=== PATIENT | male | born 1945 | race Caucasian/White ===

== ENCOUNTER → 2019-08-16 08:58 | Outpatient (BNVA) | payer MEDICARE, MEDICAID, SELFPAY | PROVIDERS: Family Provider Nurse Practitioner Family; PCP Nurse Practitioner Family; Visit Provider Nurse Practitioner Family | DX: E11.9 Type 2 diabetes mellitus without complications (principal) | CPT/HCPCS: 80053; 83036 ==

== ENCOUNTER → 2019-11-25 11:31 | Outpatient (BNVA) | payer MEDICARE, MEDICAID, SELFPAY | PROVIDERS: Family Provider Nurse Practitioner Family; PCP Nurse Practitioner Family; Visit Provider Nurse Practitioner Family | DX: G62.9 Polyneuropathy, unspecified (principal); E11.42 Type 2 diabetes mellitus with diabetic polyneuropathy; E78.5 Hyperlipidemia, unspecified; I10 Essential (primary) hypertension | CPT/HCPCS: 80053; 80061; 82044; 83036 ==

== ENCOUNTER → 2020-04-02 09:35 | Outpatient (BNVA) | payer MEDICARE, MEDICAID, SELFPAY | PROVIDERS: Family Provider Nurse Practitioner Family; PCP Nurse Practitioner Family; Visit Provider Nurse Practitioner Family | DX: E78.1 Pure hyperglyceridemia (principal); E11.9 Type 2 diabetes mellitus without complications; I10 Essential (primary) hypertension | CPT/HCPCS: 83036; 84478 ==

== ENCOUNTER 2020-12-10 09:17 | Outpatient (CLI) | payer MEDICARE, SELFPAY ==
[2020-12-10 09:54] LABS: Estmated Average Glucose 126
[2020-12-10 10:14] LABS: Alanine Aminotransferase 13 U/L (0-41); Albumin Level 4.2 g/dL (3.5-5.2); Alkaline Phosphatase 32 IU/L (40-130); Anion Gap 14.5 (5-19); Aspartate Amino Transferase 19 U/L (0-40); Blood Urea Nitrogen 28 mg/dL (8-23); Carbon Dioxide 30 mmol/L (22-29); Chloride 97 mmol/L (98-107); Globulin 3.2 g/dL (1.3-4.6); Glucose 107 mg/dL (65-115); Osmolality Calculated 292 mOsm/kg (285-295); Potassium 3.5 mmol/L (3.5-5.1); Sodium 138 mmol/L (136-145); Total Bilirubin 0.8 mg/dL (0.15-1.2); Total Protein 7.4 g/dL (6.6-8.7)
== END 2020-12-10 09:18 | disposition home or self-care (01) ==
LOC: LAB 09:27
PROVIDERS: PCP Nurse Practitioner Family; Visit Provider Nurse Practitioner Family
DX: I10 Essential (primary) hypertension (principal); E11.9 Type 2 diabetes mellitus without complications
CPT/HCPCS: 36415; 80053; 83036

== ENCOUNTER 2020-12-14 10:44 | Outpatient (CLI) | payer MEDICARE, SELFPAY ==
--- NOTE | 2020-12-14 11:00 | CT_ITS ---
WS: [id number] CT ABDOMEN PELVIS TECHNIQUE: Noncontrast CT of the abdomen and pelvis with coronal and sagittal reformatted images. CLINICAL INFORMATION: R16.0 - Hepatomegaly, not elsewhere classified COMPARISON: None. DLP: 739.[address] scans at [facility] use at least one of these dose optimization techniques: automat ed exposure control; mA and/or kV adjustment per patient size (includes targeted exams where dose is matched to clinical indication); or iterative reconstruction. FINDINGS: Small fat-containing periumbilical hernia. No herniated bowel. Tiny fat-containing umbilical hernia. Noncontrast liver is normal. Normal noncontrast spleen. Noncontrast pancreas is unremarkable. Small e sophageal hiatal hernia. Left adrenal gland is normal. Small right adrenal adenomas measuring 9 mm an d 8 mm. No abdominal lymphadenopathy. Congenital Horseshoe kidney. Left renal cyst measuring 2.5 CM. No hydronephrosis in either kidney. No evidence of small or large bowel obstruction. Disc space narrowing worse L5-S1. CT/CT abdomen pelvis wo con [id number] IMPRESSION: 1. Small esophageal hiatal hernia. 2. Tiny fat-containing umbilical hernia. Adjacent small fat-containing left pe riumbilical hernia. No herniated bowel. 3. No evidence of small or large bowel obstruction. 4. Congenital horseshoe kidney. No hydronephrosis. 5. Left renal cyst measuring 2.6 CM. 6. Small right adrenal adenomas.
== END 2020-12-14 10:45 | disposition home or self-care (01) ==
PROVIDERS: PCP Nurse Practitioner Family; Visit Provider Nurse Practitioner Family
DX: R16.0 Hepatomegaly, not elsewhere classified (principal); K44.9 Diaphragmatic hernia without obstruction or gangrene; K42.9 Umbilical hernia without obstruction or gangrene; N28.1 Cyst of kidney, acquired; D35.01 Benign neoplasm of right adrenal gland
CPT/HCPCS: 74176

== ENCOUNTER → 2021-02-12 08:41 | Outpatient (BNVA) | payer MEDICARE, SELFPAY | PROVIDERS: PCP Nurse Practitioner Family; Visit Provider Surgery | DX: Z20.828 Contact with and (suspected) exposure to other viral communicable diseases (principal) | CPT/HCPCS: 87635 ==

== ENCOUNTER 2021-02-18 09:22 | Day surgery (SDC) | payer MEDICARE, MEDICAID, SELFPAY ==
[2021-02-16 09:24] VITALS: BMI 29.9
--- NOTE | 2021-02-18 09:37 | ANES.PREANE2 ---
Pre-Anesthetic Assessment Pre-Anesthetic Assessment: Height/Weight: Height 1.73 m Weight 89.358 kg Proposed Procedure: Operation Date: 02/18/21 11:00 Proposed Procedures p EGD [id number] z12.11 k21.9(Not Applicable) - Edgar Hancock MD s Colonoscopy(Not Applicable) - Edgar Hancock MD Was Beta Stephen taken within 24 hours: Yes Was Clonidine taken within 24 hours: N/A Social: Social History: No alcohol and No tobacco Exam: Pre-Anes Outpt Exam: alert, oriented x 3, clear to auscultation bilaterally and regular rate & rhythm Airway: Submandibular: WNL Cervical ROM: WNL MP: 2 Dentition: Full CV/HEM: CV/HEM: CAD (CABG) and HTN GI: GI: GERD Metabolic: Metabolic: DM and Hyperlipidemia Anesthetic Plan: ASA status: 3 Anesthesia: MAC Risk of > 500 ml blood loss (7ml/kg in children): No PFSH Anesthesia PFSH: Medical History BPH (benign prostatic hyperplasia) Diabetes mellitus History of kidney stones Horseshoe kidney HTN (hypertension) Hypertriglyceridemia Incisional hernia Surgical History H/O thoracic aortic aneurysm repair History of kidney surgery Hx of appendectomy Hx of cholecystectomy Family History Denies family history of Anesthesia complication Bleeding disorder Social History Smoking and tobacco status: former smoker Alcohol intake: never Household members: spouse Marital status: Data Anesthesia Cardiac Studies: No Data to Display
--- NOTE | 2021-02-18 09:43 | W.PM.OPSFHP ---
Same Day Surgery H&P Indication for Procedure/HPI DATE OF PROCEDURE: February 18, 2021 CHIEF COMPLAINT/INDICATIONFOR SURGICAL PROCEDURE: gerd/screening PREOP DIAGNOSIS: screening PLANNED PROCEDRUE: Operation Date: 02/18/21 11:00 Proposed Procedures p EGD [id number] z12.11 k21.9(Not Applicable) - Edgar Hancock MD s Colonoscopy(Not Applicable) - Edgar Hancock MD Medications/Allergies* Home Medications Medication Instructions Recorded Confirmed Type aspirin 81 mg tablet,delayed 81 mg PO DAILY 08/16/19 02/16/21 History release gabapentin 300 mg PO BID 02/16/21 02/16/21 History hydrochlorothiazide 25 mg PO DAILY 02/16/21 02/16/21 History lovastatin 40 mg PO DAILY 02/16/21 02/16/21 History topiramate 50 mg PO DAILY 02/16/21 02/16/21 History Allergies/Adverse Reactions Allergy/AdvReac Type Severity Reaction Status Date / Time No Known Allergies Allergy Verified 12/16/20 15:40 Pertinent History/Comorbid Conditions* Medical History (Updated 12/29/20 @ 09:09 by Edgar Hancock MD) BPH (benign prostatic hyperplasia) Diabetes mellitus History of kidney stones Horseshoe kidney HTN (hypertension) Hypertriglyceridemia Incisional hernia Surgical History (Updated 12/29/20 @ 08:56 by Edgar Hancock MD) H/O thoracic aortic aneurysm repair History of kidney surgery Hx of appendectomy Hx of cholecystectomy Family History (Updated 12/29/20 @ 08:44 by DARLENE Membreno) Denies family history of Anesthesia complication Bleeding disorder Social History Smoking and tobacco status: former smoker Alcohol intake: never Household members: spouse Marital status: Pertinent Exam Findings alert, oriented x 3 and regular rate & rhythm Recommendations Surgery/Procedure today Coding Level of Care Code Acute 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
[2021-02-18 10:05] VITALS: BP 169/74; PULSE 58; RESP 18; TEMP 36.1; O2SAT 98
[2021-02-18] MEDS: sodium chloride 0.9% 1,000 ML 30 ML IV (10:10)
[2021-02-18 10:15] LABS: Glucose Point of Care 141 mg/dL (70-110)
[2021-02-18 11:56] VITALS: BP 97/50; PULSE 62; RESP 14; TEMP 36.1; O2SAT 94
[2021-02-18 12:15] VITALS: BP 110/86; PULSE 68; RESP 18; O2SAT 96
--- NOTE | 2021-02-18 12:40 | ANE.PACU2 ---
Inpatient post-anesthesia follow up: Airway intact: Yes Vital signs: Temperature 97 F Pulse Rate 68 Respiratory Rate 18 Blood Pressure 110/86 Pulse Oximetry 96 Oxygen Delivery Me thod Room Air Oxygen Flow Rate 2 Fraction of Inspir ed Oxygen Hydration adequate: Yes Mental status: Baseline
--- NOTE | 2021-02-18 14:40 | ANE.PACU2 ---
Inpatient post-anesthesia follow up: Airway intact: Yes Vital signs: Temperature 97 F Pulse Rate 68 Respiratory Rate 18 Blood Pressure 110/86 Pulse Oximetry 96 Oxygen Delivery Me thod Room Air Oxygen Flow Rate 2 Fraction of Inspir ed Oxygen Hydration adequate: Yes Nausea and vomiting: No Pain level: 1 Mental status: Baseline
== END 2021-02-18 12:45 | disposition home or self-care (01) ==
PROVIDERS: PCP Nurse Practitioner Family; Visit Provider Surgery
PROC: 0DJ08ZZ Inspection of Upper Intestinal Tract, Via Natural or Artificial Opening Endoscopic (ICD-10-PCS; CPT 43235; principal; 2021-02-18 11:00)
PROC: 0DJD8ZZ Inspection of Lower Intestinal Tract, Via Natural or Artificial Opening Endoscopic (ICD-10-PCS; CPT 45378; 2021-02-18 11:00)
DX: Z12.11 Encounter for screening for malignant neoplasm of colon (principal); K21.9 Gastro-esophageal reflux disease without esophagitis; K57.30 Diverticulosis of large intestine without perforation or abscess without bleeding; K64.8 Other hemorrhoids; K29.70 Gastritis, unspecified, without bleeding; Z79.82 Long term (current) use of aspirin; N40.0 Benign prostatic hyperplasia without lower urinary tract symptoms; E11.9 Type 2 diabetes mellitus without complications; I10 Essential (primary) hypertension; Z87.891 Personal history of nicotine dependence; I25.10 Atherosclerotic heart disease of native coronary artery without angina pectoris; Z95.1 Presence of aortocoronary bypass graft; E78.5 Hyperlipidemia, unspecified
CPT/HCPCS: 36416; 43239; 82962; 88305; 96360; 96361; G0121; J2704; J3490; J7030

== ENCOUNTER → 2021-05-03 10:12 | Outpatient (BNVA) | payer MEDICARE, MEDICAID, SELFPAY | PROVIDERS: PCP Nurse Practitioner Family; Visit Provider Nurse Practitioner Family | DX: E11.9 Type 2 diabetes mellitus without complications (principal); I10 Essential (primary) hypertension; E78.5 Hyperlipidemia, unspecified; I25.10 Atherosclerotic heart disease of native coronary artery without angina pectoris; E78.1 Pure hyperglyceridemia | CPT/HCPCS: 80053; 80061; 82043; 83036 ==

== ENCOUNTER 2021-07-22 06:57 | Outpatient (CLI) | payer MEDICARE, MEDICAID, SELFPAY ==
--- NOTE | 2021-07-22 07:15 | USCV_ITS ---
Lester Etienne Age: 76 Gender: M : 1945 Exam Date: 07/22/2021 07:15 Ordering Phys: Jesus Oro M.D ([email or web address]) Technologist: Jena Grider Exam Location: [facility] [place] Indication: Porcine AO valve BP: 130 / 75 HR: 64 Rhythm: Sinus Technical Quality: Adequate MEASUREMENTS (Male / Female) Normal Values 2D ECHO LV Diastolic Diameter PLAX 3.7 cm 4.2 - 5.9 / 3.9 - 5.3 cm LV Systolic Diameter PLAX 2.0 cm LV Chamber Size 3.6 cm IVS Diastolic Thickness 1.0 cm 0.6 - 1.0 / 0.6 - 0.9 cm IVS Systolic Thickness 0.9 cm LVPW Diastolic Thickness 1.1 cm 0.6 - 1.0 / 0.6 - 0.9 cm LVPW Systolic Thickness 1.1 cm RV Chamber Size 3.3 cm LVOT Diameter 2.0 cm LV Ejection Fraction 2D Teich 77.7 % LV Ejection Fraction MOD 2C 36.8 % LV Ejection Fraction 2C AL 36.1 % LA Diameter 4.2 cm LA Width 3.2 cm LA Height 4.8 cm RA Width 3.4 cm RA Height 4.0 cm Aorta at Sinotubular Diameter 2.8 cm M-MODE Aortic Annulus Diameter 2.3 cm LA Ao Ratio MM 1.8 MV E Point Septal Separation 0.4 cm DOPPLER AV Peak Velocity 194.0 cm/s LVOT Peak Velocity 78.0 cm/s AV Area Cont Eq vti 1.4 cm squared AV Area Cont Eq pk 1.3 cm squared MV Area PHT 3.2 cm squared Mitral E to A Ratio 1.0 MV E' Velocity 40.0 cm/s Mitral E to MV E' Ratio 8.4 Mitral E to LV E' Lateral Ratio 7.6 Mitral E to LV E' Septal Ratio 9.4 TR Peak Velocity 243.8 cm/s TR Peak Gradient 23.8 mmHg TR Mean Velocity 175.0 cm/s TR Mean Gradient 13.7 mmHg TR Velocity Time Integral 82.3 cm Right Atrial Pressure 3.0 mmHg Pulmonary Artery Systolic Pressu 26.8 mmHg PV Peak Velocity 67.3 cm/s RV Acceleration Time 0.2 s RV Ejection Time 0.3 s RV AcT/ET 0.5 FINDINGS Left Ventricle Normal left ventricular size. LV systolic function is borderline normal with EF of 50-55%. No regional wall motion abnormalities. Right Ventricle The right ventricle is normal in size and function. Right Atrium The right atrium is normal in size. Left Atrium The left atrium is normal in size. Mitral Valve Mitral valve is thickened without significant stenosis or prolapse. There is no mitral regurgitation. Aortic Valve Bioprosthetic aortic valve is not well visualized. Mild aortic stenosis is seen with aortic valve area of 1.39cm2 and mean gradient across the aortic valve of 10mmHg. DVI is normal and is 0.43 Tricuspid Valve Structurally normal tricuspid valve without significant stenosis. Mild tricuspid regurgitation. Pulmonary artery systolic pressure is normal. Pulmonic Valve Structurally normal pulmonic valve without significant stenosis. There is no pulmonic regurgitation. Pericardium Normal pericardium without effusion. Aorta Normal ascending aorta dimension. CONCLUSIONS LV systolic function is borderline normal with EF of 50-55% Mitral valve is thickened Bioprosthetic aortic valve is not well visualized. It is functioning normally with DVI of 0.43. 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 Jesus Oro MD (Electronically Signed) Final Date: 22 July 2021 10:09 S
== END 2021-07-22 06:58 | disposition home or self-care (01) ==
PROVIDERS: PCP Nurse Practitioner Family; Visit Provider Internal Medicine
DX: Z95.3 Presence of xenogenic heart valve (principal); I05.9 Rheumatic mitral valve disease, unspecified
CPT/HCPCS: 93306

== ENCOUNTER → 2021-08-03 11:16 | Outpatient (BNVA) | payer MEDICARE, MEDICAID, SELFPAY | PROVIDERS: PCP Nurse Practitioner Family; Visit Provider Nurse Practitioner Family | DX: I10 Essential (primary) hypertension (principal); E78.5 Hyperlipidemia, unspecified; E11.9 Type 2 diabetes mellitus without complications; E78.1 Pure hyperglyceridemia | CPT/HCPCS: 80053; 80061; 82043; 83036 ==

== ENCOUNTER → 2021-11-24 14:23 | Outpatient (BNVA) | payer MEDICARE, MEDICAID, SELFPAY | PROVIDERS: PCP Nurse Practitioner Family; Visit Provider Internal Medicine | DX: I25.10 Atherosclerotic heart disease of native coronary artery without angina pectoris (principal); I10 Essential (primary) hypertension; R06.00 Dyspnea, unspecified; Z95.2 Presence of prosthetic heart valve; Z87.891 Personal history of nicotine dependence | CPT/HCPCS: 99213; 99214 ==

== ENCOUNTER 2022-02-04 08:28 | Outpatient (CLI) | payer MEDICARE, MEDICAID, SELFPAY ==
[2022-02-04 09:36] LABS: Estmated Average Glucose 146; Hemoglobin A1C 6.7 % (4.0-6.0)
[2022-02-04 09:42] LABS: Alanine Aminotransferase 21 U/L (0-41); Alkaline Phosphatase 35 IU/L (40-130); Blood Urea Nitrogen 23 mg/dL (8-23); Carbon Dioxide 30 mmol/L (22-29); Chloride 101 mmol/L (98-107); Chol HDL Ratio 3.87 mg/dL (1.0-5.00); Cholesterol 120 mg/dL (0-200); Globulin 3.1 g/dL (1.3-4.6); Glucose 125 mg/dL (65-115); HDL Cholesterol 31 mg/dL (60-100); LDL Cholesterol Calculated 31 mg/dL (50-129); Osmolality Calculated 297 mOsm/kg (285-295); Sodium 141 mmol/L (136-145); Total Protein 7.1 g/dL (6.6-8.7); Triglycerides 291 mg/dL (0-150)
[2022-02-04 09:47] LABS: Anion Gap 13.2 (5-19); Aspartate Amino Transferase 26 U/L (0-40); Potassium 3.2 mmol/L (3.5-5.1)
== END 2022-02-04 08:29 | disposition home or self-care (01) ==
LOC: LAB 08:45
PROVIDERS: PCP Nurse Practitioner Family; Visit Provider Nurse Practitioner Family
DX: E11.9 Type 2 diabetes mellitus without complications (principal); I10 Essential (primary) hypertension
CPT/HCPCS: 36415; 80053; 80061; 83036

== ENCOUNTER → 2022-03-30 14:20 | Outpatient (BNVA) | payer MEDICARE, MEDICAID, SELFPAY | PROVIDERS: PCP Nurse Practitioner Family; Visit Provider Nurse Practitioner Family | DX: R63.4 Abnormal weight loss (principal); R10.9 Unspecified abdominal pain; E11.9 Type 2 diabetes mellitus without complications | CPT/HCPCS: 80053; 82962; 85025 ==

== ENCOUNTER → 2022-06-06 11:12 | Outpatient (BNVA) | payer MEDICARE, MEDICAID, SELFPAY | PROVIDERS: PCP Nurse Practitioner Family; Visit Provider Nurse Practitioner Family | DX: M79.606 Pain in leg, unspecified (principal); E11.9 Type 2 diabetes mellitus without complications | CPT/HCPCS: 82550; 83036 ==

== ENCOUNTER → 2022-10-12 10:17 | Outpatient (BNVA) | payer MEDICARE, MEDICAID, SELFPAY | PROVIDERS: PCP Nurse Practitioner Family; Visit Provider Nurse Practitioner Family | DX: E11.9 Type 2 diabetes mellitus without complications (principal); I10 Essential (primary) hypertension; E78.1 Pure hyperglyceridemia | CPT/HCPCS: 80053; 80061; 83036 ==

== ENCOUNTER 2022-11-01 16:02 | Emergency (ER) | payer MEDICARE, MEDICAID, SELFPAY ==
[2022-11-01 16:08] VITALS: BP 87/46; PULSE 78; RESP 16; TEMP 36.8; O2SAT 95
--- NOTE | 2022-11-01 16:16 | XRR_ITS ---
PROCEDURE INFORMATION: Exam: XR Chest Exam date and time: 11/01/2022 4:31 PM Age: 77 years old Clinical indication: Cough and dyspnea; Additional info: Dyspnea/cough TECHNIQUE: Imaging protocol: Radiologic exam of the chest. Views: 1 view. COMPARISON: CT abdomen pelvis con [id number] 12/14/2020 11:34 AM FINDINGS: Lungs: Left lower lobe atelectasis versus minimal infiltrate. Pleural spaces: Unremarkable. No pleural effusion. No pneumothorax. Heart/Mediastinum: Unremarkable. No cardiomegaly. Bones/joints: Sternotomy wires. XR/XR chest 1V portable [id number] IMPRESSION: 1. Left lower lobe atelectasis versus minimal infiltrate. 2. Sternotomy wires.
--- NOTE | 2022-11-01 16:30 | ED_ITS ---
Documented by User: Onofre Parra DO 11/02/22 07:35 HPI - Dizziness General: Chief Complaint: Dizziness Stated Complaint: low bp/sob Time Seen by Provider: 11/01/22 16:15 Source: patient Mode of arrival: ambulatory History of Present Illness: HPI Narrative: 77-year-old male presents to the emergency room complaining of dizziness when he stands. He has had elevated blood sugars well. He has a known history of heart disease he has previously had stents knee and bioprosthetic aortic valve replacement he is not on any anticoagulants. He reports lightheadedness and d izziness when standing for the last several weeks. He has noticed when he exerts himself at all he gets somewhat short of breath. MD elicited complaint: dizziness and lightheadedness Onset (ago): week(s) Severity: mild Description: lightheadedness and off-balance Context: change in body position Exacerbating factors: change in body position Relieving factors: remaining still Associated symptoms: Denies change in hearing, chest pain, chills, cough, diaphoresis, ear discharge, ear pressure, fevers/chills, headache(s), malaise, nausea, nasal congestion, palpitations, rash, short of breath, syncope, tinnitus, vomiting or weakness Associated neuro symptoms: Deny confusion, difficulty speaking, dysphagia, diplopia, extremity weakness, facial numbness, facial weakness, gait changes, numbness in extremities or visual changes Review of Systems Const: Denies: fever(s), chills, fatigue, malaise or diaphoresis ENMT: Denies: ear discharge, change in hearing, tinnitus or nasal congestion Card: Denies: chest pain, palpitations, irregular heart rhythm, edema or syncope Resp: Denies: dyspnea, productive cough or non-productive cough GI: Denies: abdominal pain, nausea, vomiting or dysphagia : Denies: flank pain, dysuria, urinary frequency or urinary urgency Skin/Breast: Denies: rash or pruritus Neuro: Reports: dizziness; Denies: headache(s), numbness in extremities or confusion PFSH ED PFSH: Medical History BPH (benign prostatic hyperplasia) Diabetes mellitus Gastroesophageal reflux disease History of kidney stones Horseshoe kidney HTN (hypertension) Hypertriglyceridemia Incisional hernia Surgical History H/O esophagogastroduodenoscopy (02/18/21) H/O thoracic aortic aneurysm repair History of aortic valve replacement History of kidney surgery Hx of appendectomy Hx of cholecystectomy Status post colonoscopy (02/18/21) Family History Denies family history of Anesthesia complication Bleeding disorder Social History Smoking and tobacco status: never smoked Alcohol intake: never Substance/Drug Use: never Household members: spouse Marital status: Physical Exam Const: GENERAL APPEARANCE: cooperative and comfortable ORIENTATION/CONSCIOUSNESS: Yes awake, Yes oriented to person, Yes oriented to place and Yes oriented to time HENMT: COMMON NORMALS: normocephalic, atraumatic and hearing grossly normal bilaterally HEAD & SCALP: normocephalic and atraumatic Resp: COMMON NORMALS: normal respiratory effort, No retractions, No use of accessory muscles and clear to auscultation bilaterally AUSCULTATION: clear to auscultation bilaterally Cardio: COMMON NORMALS: regular rate, regular rhythm and No murmurs present (Cardio) RATE: regular rate RHYTHM: regular rhythm GI: COMMON NORMALS: Soft to palpation and No hepatosplenomegaly present AUSCULTATION: Yes normoactive bowel sounds PALPATION: Yes Soft to palpation, No Tenderness to palpation present (GI), No Guarding due to palpation present (GI) and Yes No hepatosplenomegaly present Extremity: COMMON NORMALS: normal to inspection, capillary refill normal, no clubbing, cyanosis or edema, no calf tenderness and no pedal edema Neuro: SENSORIUM/ORIENTATION: Yes oriented to person, Yes oriented to place and Yes oriented to time Skin: COMMON NORMALS: no rashes or lesions noted GENERAL SKIN EXAM: no rashes or lesions noted Course Vital Signs: Vital signs: Vital Signs Temperature 98.3 F 11/01/22 16:08 Pulse Rate 69 11/01/22 20:07 Respiratory Rate 16 11/01/22 20:07 Blood Pressure 106/47 11/01/22 20:07 Pulse Oximetry 94 11/01/22 20:07 Oxygen Delivery Me thod Room Air 11/01/22 17:17 [facility] - Dizziness Medical Decision Making Patient complaining of what sounds mostly like orthostatic hypotension. He did have a mild complaint of some vague chest pain. Second troponin is pending care signed out to Dr. Castillo at change of shift. See final notes for diagnosis and disposition. Patient presents here with some lightheadedness especially standing sound like near syncopal he is likely had some dehydration he feels much improved after IV fluids he is able ambulate and symptoms have resolved he is stable for discharge she is to follow-up with PCP and return if worsening. Lab Data 11/01/22 16:20 11/01/22 16:20 Radiology Impressions Chest X-Ray 11/01/22 16:16 IMPRESSION: 1. Left lower lobe atelectasis versus minimal infiltrate. 2. Sternotomy wires. Laboratory Results WBC 17.0 10^3/uL (4.0-10.0) H 11/01/22 16:20 RBC 5.12 10^6/uL (4.1-5.3) 11/01/22 16:20 Hgb 15.4 g/dL (11.7-16.6) 11/01/22 16:20 Hct 47.2 % (42.0-52.0) 11/01/22 16:20 MCV 92.2 fl (80-94) 11/01/22 16:20 MCH 30.1 pg (28.0-34.0) 11/01/22 16:20 MCHC 32.6 g/dL (30.0-36.0) 11/01/22 16:20 RDW 13.2 % (12.1-15.1) 11/01/22 16:20 Plt Count 159 10^3/cmm (130-400) 11/01/22 16:20 MPV 10.2 fL (7.4-10.4) 11/01/22 16:20 Neut % (Auto) 83.5 % 11/01/22 16:20 Lymph % (Auto) 8.7 % 11/01/22 16:20 [place] % (Auto) 7.2 % 11/01/22 16:20 Eos % (Auto) 0.0 % 11/01/22 16:20 Baso % (Auto) 0.2 % 11/01/22 16:20 Neut # (Auto) 14.15 10^3/uL (1.8-7.7) H 11/01/22 16:20 Lymph # (Auto) 1.5 10^3/uL (0.8-4.8) 11/01/22 16:20 [place] # (Auto) 1.2 10^3/uL (0.2-0.9) H 11/01/22 16:20 Eos # (Auto) 0.0 10^3/uL (0.0-0.8) 11/01/22 16:20 Baso # (Auto) 0.0 10^3/uL (0.0-0.1) 11/01/22 16:20 Nucleated RBC % (auto) 0 % 11/01/22 16:20 Nucleated RBCs # 0.0 /100WBC 11/01/22 16:20 Sodium 134 mmol/L (136-145) L 11/01/22 16:20 Potassium 4.6 mmol/L (3.5-5.1) 11/01/22 16:20 Chloride 92 mmol/L (98-107) L 11/01/22 16:20 Carbon Dioxide 23 mmol/L (22-29) 11/01/22 16:20 Anion Gap 23.6 (5-19) H 11/01/22 16:20 BUN 35 mg/dL (8-23) H 11/01/22 16:20 Creatinine 2.1 mg/dL (0.7-1.2) H 11/01/22 16:20 GFR Calculation Not Reportable 11/01/22 16:20 Glucose 258 mg/dL (65-115) H 11/01/22 16:20 Calculated Osmolality 295 mOsm/kg (285-295) 11/01/22 16:20 Calcium 9.3 mg/dL (8.5-10.5) 11/01/22 16:20 Total Bilirubin 1.8 mg/dL (0.15-1.2) H 11/01/22 16:20 AST 33 U/L (0-40) 11/01/22 16:20 ALT 35 U/L (0-41) 11/01/22 16:20 Alkaline Phosphatase 42 U/L (40-130) 11/01/22 16:20 Troponin T Baseline 29 ng/L (0-15) H 11/01/22 16:20 Troponin T 120 Minute 28.95 ng/L (0-15) H 11/01/22 18:16 Delta Troponin T -0.05 ABS# (0-10) L 11/01/22 18:16 Total Protein 7.5 g/dL (6.6-8.7) 11/01/22 16:20 Albumin 4.2 g/dL (3.5-5.2) 11/01/22 16:20 Globulin 3.3 g/dL (1.3-4.6) 11/01/22 16:20 Urine Color Dark yellow (Yellow) 11/01/22 18:51 Urine Appearance Hazy (CLEAR) A 11/01/22 18:51 Urine pH 5 (5-7) 11/01/22 18:51 Ur Specific [place] 1.020 (1.005-1.030) 11/01/22 18:51 Urine Protein Trace (Negative) 11/01/22 18:51 Urine Glucose (UA) 1+ (Normal) H 11/01/22 18:51 Urine Ketones 1+ (Negative) H 11/01/22 18:51 Urine Blood Neg (Negative) 11/01/22 18:51 Urine Nitrate Negative (Negative) 11/01/22 18:51 Urine Bilirubin 1+ (Negative) H 11/01/22 18:51 Urine Urobilinogen Neg mg/dL (Negative) 11/01/22 18:51 Ur Leukocyte Esterase Negative (Negative) 11/01/22 18:51 Urine RBC None /hpf (0-2) 11/01/22 18:51 Urine WBC None /hpf (0-5) 11/01/22 18:51 Ur Squamous Epith Cells 0-4 /hpf (0-5) H 11/01/22 18:51 Amorphous Sediment 1+ /hpf 11/01/22 18:51 Urine Bacteria None /hpf (NONE) 11/01/22 18:51 Hyaline Casts 5-10 /lpf H 11/01/22 18:51 Urine Mucus 2+ /hpf 11/01/22 18:51 Serum Ketones Negative (Negative) 11/01/22 16:20 Discharge Plan Discharge Patient Disposition: Home Clinical Impression: Light headed Condition: Stable Prescriptions: No Action aspirin [Adult Aspirin Regimen] 81 mg tablet,delayed release (DR/EC) 81 mg PO DAILY pantoprazole [Protonix] 40 mg tablet,delayed release (DR/EC) 40 mg PO DAILY Qty: 90 0RF nitroglycerin 0.3 mg tablet, sublingual 0.3 mg sublingual Q5M PRN (Reason: chest pain) Qty: 100 0RF Rx Instructions: do not exceed 3 doses per episode (DME) blood-glucose meter [Blood Glucose Monitoring] Kit See Rx Instructions .ROUTE .MEDSUPPLY Qty: 1 0RF Rx Instructions: As directed (DME) blood sugar diagnostic Strip See Rx Instructions .Route Qty: 50 2RF Rx Instructions: As directed hydrochlorothiazide 25 mg tablet See Rx Instructions .ROUTE .COMPLEX Qty: 90 1RF Dose Instruction: TAKE 1 TABLET BY MOUTH DAILY Rx Instructions: TAKE 1 TABLET BY MOUTH DAILY gabapentin 300 mg capsule 300 mg PO TID Qty: 270 1RF metformin 1,000 mg tablet See Rx Instructions .ROUTE .COMPLEX Qty: 180 1RF Dose Instruction: TAKE 1 TABLET BY MOUTH TWICE DAILY Rx Instructions: TAKE 1 TABLET BY MOUTH TWICE DAILY metformin 500 mg tablet See Rx Instructions .ROUTE .COMPLEX Qty: 90 1RF Dose Instruction: TAKE 1 TABLET BY MOUTH DAILY Rx Instructions: TAKE 1 TABLET BY MOUTH DAILY potassium chloride 10 mEq tablet,ER particles/crystals 10 meq PO DAILY Qty: 30 0RF sucralfate 1 gram tablet 1 g PO BID Qty: 180 1RF topiramate 50 mg tablet See Rx Instructions .ROUTE .COMPLEX Qty: 90 0RF Dose Instruction: TAKE 1 CAPSULE BY MOUTH DAILY Rx Instructions: TAKE 1 CAPSULE BY MOUTH DAILY tamsulosin 0.4 mg capsule See Rx Instructions .ROUTE .COMPLEX Qty: 90 0RF Dose Instruction: TAKE 1 CAPSULE BY MOUTH DAILY Rx Instructions: TAKE 1 CAPSULE BY MOUTH DAILY metoprolol tartrate 25 mg tablet See Rx Instructions .ROUTE .COMPLEX Qty: 180 0RF Dose Instruction: TAKE 1 TABLET BY MOUTH TWICE DAILY Rx Instructions: TAKE 1 TABLET BY MOUTH TWICE DAILY glipizide 10 mg tablet extended release 24hr See Rx Instructions .ROUTE .COMPLEX Qty: 90 1RF Dose Instruction: TAKE 1 TABLET DAILY Rx Instructions: TAKE 1 TABLET DAILY lovastatin 40 mg tablet See Rx Instructions .ROUTE .COMPLEX Qty: 90 0RF Dose Instruction: TAKE 1 TABLET DAILY Rx Instructions: TAKE 1 TABLET DAILY Discharge Orders: Discharge ED (Routine); Ordered 11/01/22 Ordered By: Richard Castillo Referrals: Malena Griffith FNP [Primary Care Provider] - 1-3 days Discharge Diet: Advance as tolerated Discharge Activity: Resume usual activity Patient Instructions: Lightheadedness (ED) Coding Level of Care Code ED Social Sciences Research Scientist for Chg Fwd Documented by User: Richard Castillo MD 11/01/22 20:07 HPI - Dizziness General: Chief Complaint: Dizziness Stated Complaint: low bp/sob Time Seen by Provider: 11/01/22 16:15 PFSH ED PFSH: Medical History BPH (benign prostatic hyperplasia) Diabetes mellitus Gastroesophageal reflux disease History of kidney stones Horseshoe kidney HTN (hypertension) Hypertriglyceridemia Incisional hernia Surgical History H/O esophagogastroduodenoscopy (02/18/21) H/O thoracic aortic aneurysm repair History of aortic valve replacement History of kidney surgery Hx of appendectomy Hx of cholecystectomy Status post colonoscopy (02/18/21) Family History Denies family history of Anesthesia complication Bleeding disorder Social History Smoking and tobacco status: never smoked Alcohol intake: never Substance/Drug Use: never Household members: spouse Marital status: Course Vital Signs: Vital signs: Vital Signs Temperature 98.3 F 11/01/22 16:08 Pulse Rate 69 11/01/22 20:07 Respiratory Rate 16 11/01/22 20:07 Blood Pressure 106/47 11/01/22 20:07 Pulse Oximetry 94 11/01/22 20:07 Oxygen Delivery Me thod Room Air 11/01/22 17:17 MDM - Dizziness Medical Decision Making Patient presents here with some lightheadedness especially standing sound like near syncopal he is likely had some dehydration he feels much improved after IV fluids he is able ambulate and symptoms have resolved he is stable for discharge she is to follow-up with PCP and return if worsening. Lab Data 11/01/22 16:20 11/01/22 16:20 Radiology Impressions Chest X-Ray 11/01/22 16:16 IMPRESSION: 1. Left lower lobe atelectasis versus minimal infiltrate. 2. Sternotomy wires. Laboratory Results WBC 17.0 10^3/uL (4.0-10.0) H 11/01/22 16:20 RBC 5.12 10^6/uL (4.1-5.3) 11/01/22 16:20 Hgb 15.4 g/dL (11.7-16.6) 11/01/22 16:20 Hct 47.2 % (42.0-52.0) 11/01/22 16:20 MCV 92.2 fl (80-94) 11/01/22 16:20 MCH 30.1 pg (28.0-34.0) 11/01/22 16:20 MCHC 32.6 g/dL (30.0-36.0) 11/01/22 16:20 RDW 13.2 % (12.1-15.1) 11/01/22 16:20 Plt Count 159 10^3/cmm (130-400) 11/01/22 16:20 MPV 10.2 fL (7.4-10.4) 11/01/22 16:20 Neut % (Auto) 83.5 % 11/01/22 16:20 Lymph % (Auto) 8.7 % 11/01/22 16:20 [place] % (Auto) 7.2 % 11/01/22 16:20 Eos % (Auto) 0.0 % 11/01/22 16:20 Baso % (Auto) 0.2 % 11/01/22 16:20 Neut # (Auto) 14.15 10^3/uL (1.8-7.7) H 11/01/22 16:20 Lymph # (Auto) 1.5 10^3/uL (0.8-4.8) 11/01/22 16:20 [place] # (Auto) 1.2 10^3/uL (0.2-0.9) H 11/01/22 16:20 Eos # (Auto) 0.0 10^3/uL (0.0-0.8) 11/01/22 16:20 Baso # (Auto) 0.0 10^3/uL (0.0-0.1) 11/01/22 16:20 Nucleated RBC % (auto) 0 % 11/01/22 16:20 Nucleated RBCs # 0.0 /100WBC 11/01/22 16:20 Sodium 134 mmol/L (136-145) L 11/01/22 16:20 Potassium 4.6 mmol/L (3.5-5.1) 11/01/22 16:20 Chloride 92 mmol/L (98-107) L 11/01/22 16:20 Carbon Dioxide 23 mmol/L (22-29) 11/01/22 16:20 Anion Gap 23.6 (5-19) H 11/01/22 16:20 BUN 35 mg/dL (8-23) H 11/01/22 16:20 Creatinine 2.1 mg/dL (0.7-1.2) H 11/01/22 16:20 GFR Calculation Not Reportable 11/01/22 16:20 Glucose 258 mg/dL (65-115) H 11/01/22 16:20 Calculated Osmolality 295 mOsm/kg (285-295) 11/01/22 16:20 Calcium 9.3 mg/dL (8.5-10.5) 11/01/22 16:20 Total Bilirubin 1.8 mg/dL (0.15-1.2) H 11/01/22 16:20 AST 33 U/L (0-40) 11/01/22 16:20 ALT 35 U/L (0-41) 11/01/22 16:20 Alkaline Phosphatase 42 U/L (40-130) 11/01/22 16:20 Troponin T Baseline 29 ng/L (0-15) H 11/01/22 16:20 Troponin T 120 Minute 28.95 ng/L (0-15) H 11/01/22 18:16 Delta Troponin T -0.05 ABS# (0-10) L 11/01/22 18:16 Total Protein 7.5 g/dL (6.6-8.7) 11/01/22 16:20 Albumin 4.2 g/dL (3.5-5.2) 11/01/22 16:20 Globulin 3.3 g/dL (1.3-4.6) 11/01/22 16:20 Urine Color Dark yellow (Yellow) 11/01/22 18:51 Urine Appearance Hazy (CLEAR) A 11/01/22 18:51 Urine pH 5 (5-7) 11/01/22 18:51 Ur Specific [place] 1.020 (1.005-1.030) 11/01/22 18:51 Urine Protein Trace (Negative) 11/01/22 18:51 Urine Glucose (UA) 1+ (Normal) H 11/01/22 18:51 Urine Ketones 1+ (Negative) H 11/01/22 18:51 Urine Blood Neg (Negative) 11/01/22 18:51 Urine Nitrate Negative (Negative) 11/01/22 18:51 Urine Bilirubin 1+ (Negative) H 11/01/22 18:51 Urine Urobilinogen Neg mg/dL (Negative) 11/01/22 18:51 Ur Leukocyte Esterase Negative (Negative) 11/01/22 18:51 Urine RBC None /hpf (0-2) 11/01/22 18:51 Urine WBC None /hpf (0-5) 11/01/22 18:51 Ur Squamous Epith Cells 0-4 /hpf (0-5) H 11/01/22 18:51 Amorphous Sediment 1+ /hpf 11/01/22 18:51 Urine Bacteria None /hpf (NONE) 11/01/22 18:51 Hyaline Casts 5-10 /lpf H 11/01/22 18:51 Urine Mucus 2+ /hpf 11/01/22 18:51 Serum Ketones Negative (Negative) 11/01/22 16:20 EKG Data EKG 1: I personally reviewed and interpreted this EKG as follows: EKG interpretation date: 11/01/22 EKG interpretation time: 17:08 Interpretation: nsr hr [address] elevation qrs 101 qtc 413 Discharge Plan Discharge Patient Disposition: Home Clinical Impression: Light headed Condition: Stable Prescriptions: No Action aspirin [Adult Aspirin Regimen] 81 mg tablet,delayed release (DR/EC) 81 mg PO DAILY pantoprazole [Protonix] 40 mg tablet,delayed release (DR/EC) 40 mg PO DAILY Qty: 90 0RF nitroglycerin 0.3 mg tablet, sublingual 0.3 mg sublingual Q5M PRN (Reason: chest pain) Qty: 100 0RF Rx Instructions: do not exceed 3 doses per episode (DME) blood-glucose meter [Blood Glucose Monitoring] Kit See Rx Instructions .ROUTE .MEDSUPPLY Qty: 1 0RF Rx Instructions: As directed (DME) blood sugar diagnostic Strip See Rx Instructions .Route Qty: 50 2RF Rx Instructions: As directed hydrochlorothiazide 25 mg tablet See Rx Instructions .ROUTE .COMPLEX Qty: 90 1RF Dose Instruction: TAKE 1 TABLET BY MOUTH DAILY Rx Instructions: TAKE 1 TABLET BY MOUTH DAILY gabapentin 300 mg capsule 300 mg PO TID Qty: 270 1RF metformin 1,000 mg tablet See Rx Instructions .ROUTE .COMPLEX Qty: 180 1RF Dose Instruction: TAKE 1 TABLET BY MOUTH TWICE DAILY Rx Instructions: TAKE 1 TABLET BY MOUTH TWICE DAILY metformin 500 mg tablet See Rx Instructions .ROUTE .COMPLEX Qty: 90 1RF Dose Instruction: TAKE 1 TABLET BY MOUTH DAILY Rx Instructions: TAKE 1 TABLET BY MOUTH DAILY potassium chloride 10 mEq tablet,ER particles/crystals 10 meq PO DAILY Qty: 30 0RF sucralfate 1 gram tablet 1 g PO BID Qty: 180 1RF topiramate 50 mg tablet See Rx Instructions .ROUTE .COMPLEX Qty: 90 0RF Dose Instruction: TAKE 1 CAPSULE BY MOUTH DAILY Rx Instructions: TAKE 1 CAPSULE BY MOUTH DAILY tamsulosin 0.4 mg capsule See Rx Instructions .ROUTE .COMPLEX Qty: 90 0RF Dose Instruction: TAKE 1 CAPSULE BY MOUTH DAILY Rx Instructions: TAKE 1 CAPSULE BY MOUTH DAILY metoprolol tartrate 25 mg tablet See Rx Instructions .ROUTE .COMPLEX Qty: 180 0RF Dose Instruction: TAKE 1 TABLET BY MOUTH TWICE DAILY Rx Instructions: TAKE 1 TABLET BY MOUTH TWICE DAILY glipizide 10 mg tablet extended release 24hr See Rx Instructions .ROUTE .COMPLEX Qty: 90 1RF Dose Instruction: TAKE 1 TABLET DAILY Rx Instructions: TAKE 1 TABLET DAILY lovastatin 40 mg tablet See Rx Instructions .ROUTE .COMPLEX Qty: 90 0RF Dose Instruction: TAKE 1 TABLET DAILY Rx Instructions: TAKE 1 TABLET DAILY Discharge Orders: Discharge ED (Routine); Ordered 11/01/22 Ordered By: Richard Castillo Referrals: Malena Griffith FNP [Primary Care Provider] - 1-3 days Discharge Diet: Advance as tolerated Discharge Activity: Resume usual activity Patient Instructions: Lightheadedness (ED) Coding Level of Care Code ED Social Sciences Research Scientist for John Jackson
[2022-11-01 16:49] LABS: Basophils % 0.2 %; Hematocrit 47.2 % (42.0-52.0); Hemoglobin 15.4 g/dL (11.7-16.6); Lymphocytes # 1.5 10^3/uL (0.8-4.8); Lymphocytes % 8.7 %; Mean Corpuscular HGB Conc 32.6 g/dL (30.0-36.0); Mean Corpuscular Hemoglobin 30.1 pg (28.0-34.0); Mean Corpuscular Volume 92.2 fl (80-94); Mean Platelet Volume 10.2 fL (7.4-10.4); Monocytes # 1.2 10^3/uL (0.2-0.9); Monocytes % 7.2 %; Neutrophils # 14.15 10^3/uL (1.8-7.7); Neutrophils % 83.5 %; Nucleated Red Blood Cells % 0 %; Platelet Count 159 10^3/cmm (130-400); Red Blood Count 5.12 10^6/uL (4.1-5.3); Red Cell Distribution Width 13.2 % (12.1-15.1)
--- NOTE | 2022-11-01 17:08 | ECG_ITS ---
[facility] Test Date: 2022-11-01 Pat Name: Lester Etienne Department: Room: Gender: Male Sales Planner: : 1945 Requested By: Onofre Sanchez Order Number: [id number] Scott MD: Jesus Oro M.D. Measurements Intervals [place] Rate: 77 P: 50 ID: 150 QRS: -5 QRSD: 101 T: 247 QT: 382 QTc: 433 Interpretive Statements SINUS RHYTHM WITH OCCASIONAL VENTRICULAR PREMATURE COMPLEXES ST DEVIATION AND MODERATE T-WAVE ABNORMALITY, CONSIDER LATERAL ISCHEMIA [-0.1+ mV T-WAVE IN I/aVL/V5/V6] ST DEVIATION AND MODERATE T-WAVE ABNORMALITY, CONSIDER INFERIOR ISCHEMIA [-0.1+ mV T-WAVE IN II/aVF] No previous ECG available for comparison Electronically Signed On 11-01-2022 20:37:29 CDT by Jesus Oro M.D. [id number]
[2022-11-01 17:11] LABS: Ketone (Acetest) Serum Negative (Negative)
[2022-11-01] MEDS: sodium chloride 0.9% 1,000 ML 999 ML IV (17:11)
[2022-11-01 17:17] VITALS: BP 91/50; PULSE 76; RESP 16; O2SAT 91
[2022-11-01 17:21] LABS: Troponin(5th) Baseline 29 ng/L (0-15)
[2022-11-01 17:23] LABS: Alanine Aminotransferase 35 U/L (0-41); Albumin Level 4.2 g/dL (3.5-5.2); Alkaline Phosphatase 42 U/L (40-130); Anion Gap 23.6 (5-19); Aspartate Amino Transferase 33 U/L (0-40); Blood Urea Nitrogen 35 mg/dL (8-23); Calcium 9.3 mg/dL (8.5-10.5); Carbon Dioxide 23 mmol/L (22-29); Chloride 92 mmol/L (98-107); Globulin 3.3 g/dL (1.3-4.6); Glucose 258 mg/dL (65-115); Osmolality Calculated 295 mOsm/kg (285-295); Potassium 4.6 mmol/L (3.5-5.1); Sodium 134 mmol/L (136-145); Total Bilirubin 1.8 mg/dL (0.15-1.2); Total Protein 7.5 g/dL (6.6-8.7)
[2022-11-01 17:30] VITALS: BP 110/48; PULSE 72; RESP 16; O2SAT 91
[2022-11-01 18:00] VITALS: BP 113/52; BP 116/54; BP 88/37; BP 96/44; PULSE 70; PULSE 73; PULSE 75; PULSE 76; RESP 16; O2SAT 96
--- NOTE | 2022-11-01 18:16 | ECG_ITS ---
[facility] Test Date: 2022-11-01 Pat Name: Lester Etienne Department: Room: Gender: Male Manager Mental Health: : 1945 Requested By: Onofre Sanchez Order Number: [id number] Scott MD: Jesus Oro M.D. Measurements Intervals [place] Rate: 69 P: 50 IL: 156 QRS: -10 QRSD: 110 T: 248 QT: 407 QTc: 438 Interpretive Statements SINUS RHYTHM ST DEVIATION AND MODERATE T-WAVE ABNORMALITY, CONSIDER LATERAL ISCHEMIA [-0.1+ mV T-WAVE IN I/aVL/V5/V6] ST DEVIATION AND MODERATE T-WAVE ABNORMALITY, CONSIDER INFERIOR ISCHEMIA [-0.1+ mV T-WAVE IN II/aVF] Compared to ECG 11/01/2022 17:08:08 Ventricular premature complex(es) no longer present T-wave abnormality still present Possible ischemia still present Electronically Signed On 11-01-2022 20:42:22 CDT by Jesus Oro M.D. [id number]
[2022-11-01 18:30] VITALS: BP 113/48; PULSE 69; O2SAT 93
[2022-11-01] MEDS: sodium chloride 0.9% 500 ML 999 ML IV (18:38)
[2022-11-01 18:44] LABS: Troponin 5 2HR 28.95 ng/L (0-15)
[2022-11-01 18:45] LABS: Troponin 5 2HR Delta -0.05 ABS# (0-10)
[2022-11-01 19:35] LABS: Add Urine Microscopic? YES; Bilirubin Urine 1+ (Negative); Blood Urine Neg (Negative); Glucose Urine UA 1+ (Normal); Ketones Urine 1+ (Negative); Leukocyte Esterase Urine Negative (Negative); Nitrate Urine Negative (Negative); Protein Urine Trace (Negative); Urine Appearance Hazy (CLEAR); Urine Color Dark Yellow (Yellow); Urobilinogen Urine Neg (Negative); pH Urine 5 (5-7)
[2022-11-01 19:42] LABS: Add Urine Culture? No; Amorphous Sediment Urine 1+ /hpf; Mucus Urine 2+ /hpf; Squamous Epithelial Cell Urine 0-4 /hpf (0-5)
[2022-11-01 20:07] VITALS: BP 106/47; PULSE 69; RESP 16; O2SAT 94
== END 2022-11-01 20:09 | disposition home or self-care (01) ==
PROVIDERS: Family Medicine; Emergency Provider Emergency Medicine; PCP Nurse Practitioner Family
DX: R42 Dizziness and giddiness (principal); Z79.82 Long term (current) use of aspirin; Z79.84 Long term (current) use of oral hypoglycemic drugs; E11.9 Type 2 diabetes mellitus without complications; I10 Essential (primary) hypertension
CPT/HCPCS: 36415; 71045; 80053; 81001; 82009; 84484; 85025; 93005; 96360; 96361; 99285; J7030; J7040

== ENCOUNTER → 2022-11-08 11:19 | Outpatient (BNVA) | payer MEDICARE, MEDICAID, SELFPAY | PROVIDERS: PCP Nurse Practitioner Family; Visit Provider Nurse Practitioner Family | DX: D72.829 Elevated white blood cell count, unspecified (principal); J18.9 Pneumonia, unspecified organism | CPT/HCPCS: 85025 ==

== ENCOUNTER → 2023-01-26 09:15 | Outpatient (BNVA) | payer MEDICARE, MEDICAID, SELFPAY | PROVIDERS: PCP Nurse Practitioner Family; Visit Provider Nurse Practitioner Family | DX: E78.1 Pure hyperglyceridemia (principal); E11.9 Type 2 diabetes mellitus without complications; I10 Essential (primary) hypertension; R07.89 Other chest pain; K21.9 Gastro-esophageal reflux disease without esophagitis | CPT/HCPCS: 80053; 80061; 83036 ==

== ENCOUNTER 2023-02-27 12:48 | Outpatient (CLI) | payer MEDICARE, MEDICAID, SELFPAY ==
--- NOTE | 2023-02-27 15:15 | USCV_ITS ---
Lester Etienne Age: 77 Gender: M : 1945 Exam Date: 02/27/2023 13:02 Ordering Phys: Jesus Oro M.D ([email or web address]) Technologist: Suzy Hanson Exam Location: [facility] – [place] Indication: prosthetic AOV (porcine) worsening sob BP: 130 / 58 HR: 63 Rhythm: Sinus Technical Quality: Technically difficult study MEASUREMENTS (Male / Female) Normal Values 2D ECHO LV Diastolic Diameter PLAX 3.8 cm 4.2 - 5.9 / 3.9 - 5.3 cm LV Systolic Diameter PLAX 2.4 cm IVS Diastolic Thickness 0.8 cm 0.6 - 1.0 / 0.6 - 0.9 cm IVS Systolic Thickness 1.6 cm LVPW Diastolic Thickness 1.5 cm 0.6 - 1.0 / 0.6 - 0.9 cm LVPW Systolic Thickness 0.9 cm LVOT Diameter 2.0 cm LV Ejection Fraction 2D Teich 68.2 % LV Ejection Fraction MOD 2C 62.2 % LV Ejection Fraction 2C AL 62.6 % LA Diameter 2.8 cm LA Width 2.9 cm LA Height 4.6 cm RA Width 2.9 cm RA Height 4.5 cm Aorta at Sinotubular Diameter 1.7 cm IVC Diameter 2.1 cm M-MODE Aortic Annulus Diameter 2.4 cm LA Ao Ratio MM 1.3 MV E Point Septal Separation 0.3 cm DOPPLER AV Peak Velocity 187.3 cm/s LVOT Peak Velocity 90.0 cm/s AV Area Cont Eq vti 1.5 cm squared AV Area Cont Eq pk 1.5 cm squared MV Peak Velocity 83.0 cm/s MV Area PHT 2.5 cm squared Mitral E to A Ratio 0.8 MV E' Velocity 45.5 cm/s Mitral E to MV E' Ratio 9.7 Mitral E to LV E' Lateral Ratio 8.3 Mitral E to LV E' Septal Ratio 11.9 TR Peak Velocity 62.0 cm/s TR Peak Gradient 1.5 mmHg Right Atrial Pressure 5.0 mmHg Pulmonary Artery Systolic Pressu 6.5 mmHg PV Peak Velocity 81.0 cm/s RV Acceleration Time 0.1 s RV Ejection Time 0.3 s RV AcT/ET 0.3 FINDINGS Left Ventricle Technically very limited quality echocardiogram because of poor ultrasonic windows. Grossly LV systolic function is normal. Regional wall motion abnormalities cannot accurately be assessed because of poor visualization. Right Ventricle Not well-visualized Right Atrium Normal in size Left Atrium Normal in size Mitral Valve Grossly normal Aortic Valve Not well-visualized. DVI is normal and is 0.46. Tricuspid Valve Not well visualized Pulmonic Valve Not visualized Pericardium Grossly normal Aorta Normal in size IVC Not well visualized CONCLUSIONS Technically limited quality echocardiogram because of poor ultrasonic windows. Grossly LV systolic function is normal. Aortic valve is not well-visualized. However DVI is normal and is 0.46. Comparison with prior echocardiogram is not possible because of limited visualization on the current study Jesus Oro MD (Electronically Signed) Final Date: 17 March 2023 13:01 S
== END 2023-02-27 12:49 | disposition home or self-care (01) ==
PROVIDERS: PCP Nurse Practitioner Family; Visit Provider Internal Medicine
DX: R06.02 Shortness of breath (principal); R07.89 Other chest pain
CPT/HCPCS: 93306

== ENCOUNTER 2023-03-07 08:40 | Outpatient (CLI) | payer MEDICARE, MEDICAID, SELFPAY ==
[2023-03-07 09:03] VITALS: BMI 29.5
--- NOTE | 2023-03-07 09:04 | NMCV_ITS ---
NM matthias perf SPECT r/s* [id number] Lowell Lester Age: 77 Gender: M : 1945 Exam Date: 03/07/2023 10:13 Ordering Phys: Jesus Oro M.D ([email or web address]) Technologist: RICHARD Henao Exam Location: [facility] Indications: CHEST PAIN, SHORTNESS OF BREATH STRESS TEST Please see separate stress test report in [facility] for full findings IMAGE PROTOCOL Rest/Stress 1 Lexiscan Day Radiopharmaceutical Dose (mCi) Administration Site Administered by Rest: Tc-99m 10.8 IV RICHARD Son Sestamibi Stress:Tc-99m 32.5 IV RICHARD Son Sestamibi Rest: 07-Mar-2023 60 Discovery 630 Stress: 07-Mar-2023 30 Discovery 630 0.4mg Lexiscan. Images obtained in supine and prone position. SPECT RESULTS Technical Quality: Excellent Raw Data Analysis: Normal Image Corrections: No attenuation or motion correction applied Summed Stress Score: 12 Summed Rest Score: 7 Summed Difference Score: 5 PERFUSION FINDINGS Large in size, partially reversible perfusion abnormality seen in the inferior and inferolateral garcia. This is consistent with large area of prior infarct with significant ashly-infarct ischemia seen in RCA and left circumflex artery territories. FUNCTIONAL RESULTS (calculated via Gated SPECT) Stress Image LV EF (%): 80 Stress EDV (mL):88 TID: 0.94 Stress ESV (mL):18 FUNCTIONAL FINDINGS: There is normal left ventricular systolic function. IMPRESSIONS 1. Abnormal myocardial perfusion imaging with large areas of prior infarct with significant ashly-infarct ischemia seen in RCA and left circumflex artery territories. 2. LV systolic function normal. Jesus Oro MD (Electronically Signed) Final Date: 09 March 2023 18:40 S
--- NOTE | 2023-03-07 09:04 | ECG_ITS ---
[facility] Test Date: 2023-03-07 Pat Name: Lester Etienne Department: Room: Gender: Male Hearing Therapist: Sena Lawrence : 1945 Requested By: Jesus Oro Order Number: [id number] Scott MD: Jesus Oro M.D. Interpretive Statements NAME OF STUDY: LEXISCAN SESTAMIBI STRESS TEST INDICATION: [Chest Pain; Shortness of Breath] Procedure: At the baseline, the blood pressure was 197/77mmHg with a heart rate of 66 bpm. The electrocardiogram showed normal sinus rhythm, normal axis with normal ST and T's. The Lexiscan was infused over a period of 20 seconds. A total of 0.4 mg of Lexiscan was infused. The stress phase was continued for a total of 5 minutes. Heart rate was at the end of stress phase was 81 bpm and a blood pressure of 165/61 mmHg. The EKG at the peak infusion revealed normal sinus rhythm with no significant ST-T wave changes. Sestamibi was injected 20 seconds after the Lexiscan infusion. Blood pressure at the end of recovery phase was 160/64 mmHg with a heart rate of 76 bpm. Conclusion: 1. Normal EKG response to Lexiscan infusion 2. No Lexiscan induced chest pain or cardiac arrhythmia. 3. Normal blood pressure and heart rate response. 4. Sestamibi/sestamibi perfusion scan pending; see separate report. Electronically Signed On 03-21-2023 10:10:04 CDT by Jesus Oro M.D. [id number]
[2023-03-07] MEDS: regadenoson 0.4 Mg/5 ml Syringe IVP (10:57)
[2023-03-07 11:04] VITALS: BP 160/64; PULSE 76
== END 2023-03-07 08:41 | disposition home or self-care (01) ==
PROVIDERS: PCP Nurse Practitioner Family; Visit Provider Internal Medicine
DX: R07.89 Other chest pain (principal); R06.02 Shortness of breath
CPT/HCPCS: 36415; 78452; 93017; 96374; A9500; J2785

== ENCOUNTER 2023-03-29 05:35 | Outpatient (CLI) | payer MEDICARE, MEDICAID, SELFPAY ==
[2023-03-29] VITALS (13 sets, daily range): BP systolic 123–176; BP diastolic 59–106; PULSE 48–71; RESP 0–18; TEMP 36.3–36.7; O2SAT 94–98; BMI 29.5
--- NOTE | 2023-03-29 06:00 | XACV_ITS ---
Exam Room: 2 Ht: 173 cm Wt: 88 kg BSA: 2.08 m2 Gender: Male : 1945 Any Known Allergies: No known allergies Exam Priority: Routine Procedure(s): Procedure Description: Diagnostic procedure Procedure Description: PCI procedure Procedure Description: Left Heart Catheterization Procedure Description: Venous Graft Catheterization Procedure Description: Drug Eluting Coronary Stent Procedure Description: PTCA Procedure Description: Miscellaneous Procedure Description: ACT Procedure Description: Coronary Angiography Diagnostic Cath Status: Elective Diagnostic Findings * INDICATION: 77-year-old man with past medical history of CAD s/p CABG and aortic valve replacement in 2018 has been having worsening chest discomfort with shortness of breath symptoms. He is using more nitroglycerin. He underwent stress test that was abnormal. Plan for coronary angiogram with possible percutaneous coronary intervention. * Left Main has no significant disease. * Proximal Left Anterior Descending: minimal 30% stenosis, JOHNSON: 3 flow. Patent prior stent. * Mid Circumflex: At distal end of prior stent patient has critical 95% instent restenosis, JOHNSON: 3 flow. * Bypass grafts: * SVG to diagonal artery is patent. SVG to RCA/OM jump graft is occluded.. * Proximal Right Coronary Artery: total occlusion, JOHNSON: 0 flow. * Coronary angiography shows co-dominance. PCI Status: Elective PCI Indication: Other Interventional Findings * Procedure detail: We engaged left main artery with XB 3.5 guide catheter. IV heparin was administered to maintain anticoagulation. 0.014 run-through guidewire was used to cross the stenosis and was put in distal vessel. We predilated the stenosis with 2.75 x 15 mm semicompliant balloon. This was followed by placement of 3.0 x 18 mm resolute Wilberforce drug-eluting stent. This was followed by post dilation with [id number] NC balloon. At this time we performed final angiogram showed excellent stent expansion, JOHNSON-3 flow and no residual stenosis. Patient left the labeling specialist in a stable condition. . * Mid Circumflex: 95% stenosis treated with a AB TREK 2.75X15 RX BALLOON, ROSY Dong HERMAN 3.0X18 ANTHONY, and ROSY BHAKTA EUPHORA RX [id number] BALLOON. 0% residual stenosis, JOHNSON: 3 flow. Conclusions 1. Critical 2. left circumflex artery 3. stenosis status post PCI with 1 stent.. 4. Patient has prior CABG. 5. Mid Circumflex was treated with a Balloon, Drug Eluting Stent, and Balloon. Recommendations * Dual antiplatelet therapy with aspirin and plavix for atleast 1 year. * High intensity statin therapy. * Outpatient cardiology follow up in 4 weeks. Interventional RX Recommendation: PCI w/o planned CABG Diagnostic RX Recommendation: PCI w/o planned CABG Anticoagulation: Heparin Pressures Phase:Rest AO : 176 / 68 ( 108 ) @ 8:54:00 AM 159 / 67 ( 108 ) @ 8:59:00 AM 168 / 52 ( 93 ) @ 9:13:00 AM 170 / 52 ( 95 ) @ 9:14:00 AM 175 / 56 ( 103 ) @ 9:22:00 AM 158 / 69 ( 106 ) @ 9:30:00 AM 182 / 70 ( 118 ) @ 9:35:00 AM LV : 176 / -10 / 14 @ 9:13:00 AM 175 / -10 / 13 @ 9:13:00 AM Valves Phase:DefaultPhase AV : 6.0 @ 8:42:58 AM 6.0 @ 8:42:58 AM AV Mean Gradient: 18.0 @ 8:42:58 AM 18.0 @ 8:42:58 AM Clinical Evaluation EBL: 5mL-10mL Procedural Details Procedure Consent Obtained. Admit Source: Out Patient. Pre-Procedure Time Out. Identified patient by full name and date of as verbalized by the patient/guarantor. Does the consent match the physician's order: Yes. Accurate & Complete Informed Consent: Yes. Inpatient/Outpatient History & Physical on Chart: Yes. If H&P is completed, is and addenduem needed: Yes; If yes, is the addendum complete: Yes. Visualize and Verify Site with Patient/Guarantor: N/A. Relevant Radiology Images available: Yes. The risks, benefits, and alternatives of sedation and/or procedure were discussed by physician. The patient agrees to continue. Procedure started. [facility] Clinical Fraility Score: 4: Vulnerable. 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 Chest Pain Symptom Assessment: Typical Angina Symptoms. Correct patient, site and procedure confirmed by cath team. Current diagnosis: Chest Pain, Abnormal stress test. PERRLA. Strong, equal hand language teacher bilaterally. Lungs clear x 5 lobes. IV Site on Arrival: 20 gauge in the left forearm. IV Fluids: 0.9% NaCl at 75ml/hr. 0 mL infused prior to labeling specialist. Pre Procedural Pulses: bilateral posterior tibial was 1+. Pre Procedural Pulses: bilateral dorsalis pedis was 3+. Pre Procedural Pulses: bilateral radial was 3+. Oxygen started at 2liters/min via nasal canula. bilateral groins was prepped with chloroprep then draped in the usual sterile fashion. Physician notified. Baseline sample Acquired. HR: 69 BPM. Physician arrived. Physician scrubbed in. Immediate Pre-Procedure Time Out. Correct Patient: Yes; Correct Procedure: Yes; Correct Site: Yes; Correct Patient Position: Yes; Correct Supplies: Yes; Dried Flammable Prep: Yes; Blood Products Available: No;. Lidocaine 1% infiltrated to the right groin. Arterial access obtained with micropuncture set. A 5 micronesian JL4 catheter in over wire. Multiple views taken of left coronary artery. Catheter removed over the standard wire. A 5 micronesian JR4 catheter in over wire. Multiple views taken of right coronary artery. SVG's to Diaganol visualized and patent. Catheter removed over the standard wire. A 5 micronesian AL1 catheter in over wire. Unable to engage SVG ro RCA graft. Catheter removed over the standard wire. A 5 micronesian MPA1 catheter in over wire. EDP Sample taken: LV 176/-11,14; HR: 65 BPM; SpO2: 99%. Pullback taken: LV 175/-11,13; AO 168/52(93); Mean: 18mmHg, Peak to Peak: 6mmHg, SEP: 16sec/min; HR: 60 BPM; SpO2: 99%. Catheter removed over the standard wire. A 5 micronesian JR5 catheter in over wire. SVG to RCA occluded. Catheter removed over the standard wire. 6 micronesian XB 3.5 guide catheter was inserted over the wire. Runthrough guidewire was advanced through the guide catheter to lesion in the mid Circ. Balloon inserted to lesion in the mid Circ. Inflation number : 1 A AB TREK 2.75X15 RX BALLOON was prepped and advanced across the Mid CX , then inflated to 8 DANA for 0:14 seconds. Balloon out. Stent inserted to lesion in the mid Circ. Inflation Number : 2 A ROSY Dong HERMAN 3.0X18 ANTHONY -Lot Number# [id number] EXP 10-22-2025_ was prepped and advanced across the Mid CX. The stent was deployed at 12 DANA for 0:15 seconds. Inflation number: 3 The stent balloon was then re-inflated across the Mid CX to 14 DANA for 0:15 seconds. Stent balloon out over wire. Results checked. Balloon inserted to lesion in the mid Circ. Inflation number : 4 A ROSY BHAKTA EUPHORA RX [id number] BALLOON was prepped and advanced across the Mid CX , then inflated to 16 DANA for 0:12 seconds. Balloon out. Runthrough wire out. Results checked. Guide catheter out. ACT drawn. Results 305 seconds. Therapeutic limits - pre-heparin administration 90-150 seconds and monitoring heparin during a vascular procedure >250 seconds. A Right femoral angiogram was performed to determine safe placement of closure device. A Suture was successful obtaining hemostatsis at the Right Femoral artery insertion site. Sheath(s) sutured into position with 2-0 silk and sterile 4x4's and Op-site applied over the site. No oozing or signs and symptoms of hematoma noted. Arterial sheath flushed and connected to tranducer and pressure bag with heparinized saline. Post Procedure: Pulses reassessed and unchanged. PERRLA. Strong, equal hand language teacher bilaterally. No VTE prophylaxis required. Post-op diagnosis: Severe mid circumflex stenosis status post PCI placement of 1 stent. SVG to RCA graft occluded. Medication's Wasted: Heparin = 9000 unit. Medication's Wasted: Other = Fentanyl 25mcg. Total IV fluids: 75 mL. Complications: None. Estimated blood loss: 5mL-10mL. Responsiveness - Normal response to verbal stimuli; alert and oriented, PERRLA. Airway - Unaffected, no intervention required; spontaneous ventilation. Circulation: W/N/L, pulses unchanged. Nausea/Vomiting: No. Procedure completed. Patient transferred by bed to 1st floor. Vital chart was stopped. Access Site Site: Right Femoral artery Sheath Size: 6 Fr Hemostasis Method: Suture Hemostasis Success: Successful Procedure Medications Start: 7:49 AM Stop: 7:49 AM Medication: Versed Amount: 1 mg Route: I.V. Start: 7:49 AM Stop: 7:49 AM Medication: Fentanyl Amount: 50 mcg Route: I.V. Start: 7:53 AM Stop: 7:53 AM Medication: Versed Amount: 1 mg Route: I.V. Start: 8:15 AM Stop: 8:15 AM Medication: Heparin Amount: 5000 units Route: I.V. Start: 8:19 AM Stop: 8:19 AM Medication: Heparin Amount: 3000 units Route: I.V. Start: 8:29 AM Stop: 8:29 AM Medication: Fentanyl Amount: 25 mcg Route: I.V. Start: 8:33 AM Stop: 8:33 AM Medication: Heparin Amount: 1000 units Route: I.V. Start: 8:40 AM Stop: 8:40 AM Medication: Plavix Amount: 600 mg Route: P.O. I, the attending physician, have reviewed and verified all procedure medications. Yes, all medications given per verbal order History/Risk Factors Hypertension: Yes Dyslipidemia: No Peripheral Arterial Disease (PAD): No Myocardial Infarction (MT): No Obesity: No Renal Disease: No Tobacco Use: Never Prior Interventions PCI: Yes CABG: Yes Valve Surgery: No Report Signatures Finalized by Jesus Oro MD on 04/02/2023 12:36 PM
[2023-03-29] MEDS: diphenhydrAMINE 50 mg Capsule PO (06:15)
[2023-03-29] MEDS: aspirin 325 mg Tablet PO (06:15)
[2023-03-29 06:34] LABS: Glucose Point of Care 133 mg/dL (70-110)
[2023-03-29 06:43] LABS: Basophils % 0.4 %; Eosinophils # 0.3 10^3/uL (0.0-0.8); Eosinophils % 3.3 %; Hematocrit 42.9 % (37-53); Lymphocytes # 2.8 10^3/uL (0.8-4.8); Lymphocytes % 36.1 %; Mean Corpuscular HGB Conc 33.1 g/dL (30-55); Mean Corpuscular Hemoglobin 30.8 pg (27-33); Mean Corpuscular Volume 93.1 fl (82-101); Mean Platelet Volume 9.2 fL (7.4-10.4); Monocytes # 0.8 10^3/uL (0.2-0.9); Monocytes % 10.7 %; Neutrophils # 3.82 10^3/uL (1.8-7.7); Nucleated Red Blood Cells % 0 %; Platelet Count 145 10^3/cmm (157-399); Red Blood Count 4.61 10^6/uL (3.85-5.65); White Blood Count 7.79 10^3/uL (3.29-11.43)
[2023-03-29 06:54] LABS: Anion Gap 11.7 (5-19); Blood Urea Nitrogen 19 mg/dL (8-23); Calcium 9.7 mg/dL (8.5-10.5); Carbon Dioxide 31 mmol/L (22-29); Chloride 99 mmol/L (98-107); Glucose 140 mg/dL (65-115); Osmolality Calculated 291 mOsm/kg (285-295); Potassium 3.7 mmol/L (3.5-5.1); Sodium 138 mmol/L (136-145)
--- NOTE | 2023-03-29 07:33 | P.HP_ITS ---
Same Day Surgery H&P Indication for Procedure/HPI DATE OF PROCEDURE: March 29, 2023 CHIEF COMPLAINT/INDICATIONFOR SURGICAL PROCEDURE: Worsening angina/abnormal stress test PREOP DIAGNOSIS: Worsening angina/abnormal stress test PLANNED PROCEDURE: Operation Date: 03/29/23 07:00 Proposed Procedures p [facility] 60436,R94.39,R07.9(Left) - Jesus Oro M.D Possible percutaneous coronary intervention 77-year-old man with past medical history of CAD s/p CABG and aortic valve replacement in 2018 has been having worsening chest discomfort with shortness of breath symptoms. He is using more nitroglycerin. He underwent stress test that was abnormal. Plan for coronary angiogram with possible percutaneous coronary intervention. Medications/Allergies* Home Medications Medication Instructions Recorded Confirmed Type aspirin 81 mg tablet,delayed 81 mg PO DAILY 08/16/19 03/29/23 History release (Adult Aspirin Regimen) Allergies/Adverse Reactions Allergy/AdvReac Type Severity Reaction Status Date / Time No Known Allergies Allergy Verified 02/16/23 15:27 Pertinent History/Comorbid Conditions* Medical History (Updated 02/21/23 @ 20:47 by Jesus Oro M.D) BPH (benign prostatic hyperplasia) Diabetes mellitus Gastroesophageal reflux disease History of kidney stones Horseshoe kidney HTN (hypertension) Hypertriglyceridemia Incisional hernia Surgical History (Updated 05/24/21 @ 12:02 by Jesus Oro M.D) H/O esophagogastroduodenoscopy (02/18/21) H/O thoracic aortic aneurysm repair History of aortic valve replacement History of kidney surgery Hx of appendectomy Hx of cholecystectomy Status post colonoscopy (02/18/21) Family History (Updated 12/29/20 @ 08:44 by Rebeca Coppola RN) Denies family history of Anesthesia complication Bleeding disorder Social History Smoking and tobacco status: never smoked Alcohol intake: never Substance/Drug Use: never Household members: spouse Marital status: Pertinent Exam Findings alert, oriented x 3, clear to auscultation bilaterally and regular rate & rhythm Conscious Sedation Assessment PATIENT ASSESSED PRIOR TO SEDATION, WITH NO CHANGE NOTED: Yes AIRWAY EVAL/ANESTHESIA PLAN: normal airway, ASA III, Local Anesthesia, Risks, benefits & alternatives of sedation and/or procedure discussed and Patient agrees to continue as planned ADDITIONAL INFORMATION: Moderate sedation Recommendations Surgery/Procedure today (Left heart cath with possible percutaneous coronary intervention) Coding Level of Care Code Acute Code for Chg Fwd Diagnoses
[2023-03-29] MEDS: sodium chloride 0.9% 1,000 ML 100 ML IV ×2 (09:00→19:26)
--- NOTE | 2023-03-29 11:13 | P.MISC_ITS ---
Miscellaneous Note Purpose of Documentation: Brief procedure note Note: Patient had patent [place] LAD and SVG to diagonal artery. SVG to RCA/OM was occluded. [place] left circumflex artery has a critical 95% stenosis in the mid vessel. Underwent successful revascularization with 1 stent. PLAN: Transfer to [facility] Dual antiplatelet therapy with aspirin and plavix High intenisty statin therapy Full report to follow.
[2023-03-29 11:25] LABS: Partial Thromboplastin Time 127.1 SECONDS (23.9-36.7)
[2023-03-29 13:29] LABS: Partial Thromboplastin Time 42.2 SECONDS (23.9-36.7)
[2023-03-29] MEDS: gabapentin 300 mg Capsule PO ×2 (14:39→21:30)
[2023-03-29] MEDS: acetaminophen 325 mg Tablet 650 MG PO (16:53)
[2023-03-29] MEDS: metoprolol tartrate 25 mg Tablet PO (17:57)
[2023-03-29] MEDS: atorvastatin 40 mg Tablet PO (21:30)
--- NOTE | 2023-03-30 02:09 | PC.NURSE ---
NS IV fluids stopped @ 0209 per written order.
[2023-03-30 04:30] VITALS: BP 144/64; PULSE 56; RESP 5; TEMP 36.7; O2SAT 96
[2023-03-30 05:08] LABS: Basophils % 0.3 %; Eosinophils # 0.3 10^3/uL (0.0-0.8); Eosinophils % 4.1 %; Hematocrit 39.6 % (37-53); Lymphocytes # 2.1 10^3/uL (0.8-4.8); Lymphocytes % 29.3 %; Mean Corpuscular HGB Conc 33.1 g/dL (30-55); Mean Corpuscular Hemoglobin 30.6 pg (27-33); Mean Corpuscular Volume 92.5 fl (82-101); Mean Platelet Volume 9.9 fL (7.4-10.4); Monocytes # 0.7 10^3/uL (0.2-0.9); Monocytes % 9.8 %; Neutrophils # 3.92 10^3/uL (1.8-7.7); Neutrophils % 55.9 %; Nucleated Red Blood Cells % 0 %; Platelet Count 163 10^3/cmm (157-399); Red Blood Count 4.28 10^6/uL (3.85-5.65); White Blood Count 7.02 10^3/uL (3.29-11.43)
[2023-03-30 05:27] LABS: Anion Gap 11.6 (5-19); Blood Urea Nitrogen 15 mg/dL (8-23); Calcium 8.6 mg/dL (8.5-10.5); Carbon Dioxide 29 mmol/L (22-29); Chloride 103 mmol/L (98-107); Glucose 141 mg/dL (65-115); Osmolality Calculated 293 mOsm/kg (285-295); Potassium 3.6 mmol/L (3.5-5.1); Sodium 140 mmol/L (136-145)
[2023-03-30 06:00] VITALS: PULSE 54
--- NOTE | 2023-03-30 08:59 | P.DS_ITS ---
Discharge Providers Date of Admission: March 29, 2023 Date of Discharge: March 30, 2023 Attending Provider at Discharge: Jesus Oro M.D Primary Care Provider: THEA Pepper Reason for Visit Reason for Visit: R94.39, R07.9 Brief History: 77-year-old man with past medical history of CAD s/p CABG and aortic valve replacement in 2018 has been having worsening chest discomfort with shortness of breath symptoms.? He is using more nitroglycerin.? He underwent stress test that was abnormal.? Plan for coronary angiogram with possible percutaneous coronary intervention. Hospital Course Hospital Course Patient admitted successful revascularization of mid left circumflex artery with 1 stent. SVG to diagonal artery was patent. SVG to OM/RCA was occluded. LAD was patent. Patient did well overnight and was discharged home in a stable condition on dual antiplatelet therapy. Physical Exam Narrative: GENERAL: Patient is alert, awake and oriented x3. [] NECK: No jugular vein distension. [] HEENT: No cyanosis. No icterus. No pallor. [] HEART: Regular S1 and S2. No murmur, rub or gallop. [] LUNGS: Clear to auscultate bilaterally. [] CENTRAL NERVOUS SYSTEM: Grossly nonfocal. [] EXTREMITIES: Lower extremities with 1+ edema bilaterally. 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 Routine Exams 03/29/23 06:00 Taken Laboratory Results WBC 7.02 10^3/uL (3.29-11.43) 03/30/23 04:13 RBC 4.28 10^6/uL (3.85-5.65) 03/30/23 04:13 Hgb 13.10 g/dL (11.27-16.99) 03/30/23 04:13 Hct 39.6 % (37-53) 03/30/23 04:13 MCV 92.5 fl (82-101) 03/30/23 04:13 MCH 30.6 pg (27-33) 03/30/23 04:13 MCHC 33.1 g/dL (30-55) 03/30/23 04:13 RDW 14.0 % (12.1-15.1) 03/30/23 04:13 Plt Count 163 10^3/cmm (157-399) 03/30/23 04:13 MPV 9.9 fL (7.4-10.4) 03/30/23 04:13 Neut % (Auto) 55.9 % 03/30/23 04:13 Lymph % (Auto) 29.3 % 03/30/23 04:13 [place] % (Auto) 9.8 % 03/30/23 04:13 Eos % (Auto) 4.1 % 03/30/23 04:13 Baso % (Auto) 0.3 % 03/30/23 04:13 Neut # (Auto) 3.92 10^3/uL (1.8-7.7) 03/30/23 04:13 Lymph # (Auto) 2.1 10^3/uL (0.8-4.8) 03/30/23 04:13 [place] # (Auto) 0.7 10^3/uL (0.2-0.9) 03/30/23 04:13 Eos # (Auto) 0.3 10^3/uL (0.0-0.8) 03/30/23 04:13 Baso # (Auto) 0.0 10^3/uL (0.0-0.1) 03/30/23 04:13 Nucleated RBC % (auto) 0 % 03/30/23 04:13 Nucleated RBCs # 0.0 /100WBC 03/30/23 04:13 APTT 42.2 SECONDS (23.9-36.7) H D 03/29/23 13:00 Sodium 140 mmol/L (136-145) 03/30/23 04:13 Potassium 3.6 mmol/L (3.5-5.1) 03/30/23 04:13 Chloride 103 mmol/L (98-107) 03/30/23 04:13 Carbon Dioxide 29 mmol/L (22-29) 03/30/23 04:13 Anion Gap 11.6 (5-19) 03/30/23 04:13 BUN 15 mg/dL (8-23) 03/30/23 04:13 Creatinine 1.2 mg/dL (0.7-1.2) 03/30/23 04:13 GFR Calculation Not Reportable 03/30/23 04:13 Glucose 141 mg/dL (65-115) H 03/30/23 04:13 POC Glucose 133 mg/dL (70-110) H 03/29/23 06:26 Calculated Osmolality 293 mOsm/kg (285-295) 03/30/23 04:13 Calcium 8.6 mg/dL (8.5-10.5) 03/30/23 04:13 Vitals Last Vital Signs Temp 98.1 F 03/30/23 04:30 Pulse 54 L 03/30/23 06:00 Resp 5 L 03/30/23 04:30 BP 144/64 03/30/23 04:30 Pulse Ox 96 03/30/23 04:30 O2 Del Method Room Air 03/29/23 13:18 Discharge Plan Discharge Patient Disposition: Home Prescriptions: New clopidogrel 75 mg Tablet 75 mg PO DAILY Qty: 90 3RF Continued aspirin [Adult Aspirin Regimen] 81 mg tablet,delayed release (DR/EC) 81 mg PO DAILY nitroglycerin 0.3 mg tablet, sublingual 0.3 mg sublingual Q5M PRN (Reason: chest pain) Qty: 100 0RF Rx Instructions: do not exceed 3 doses per episode (DME) blood-glucose meter [Blood Glucose Monitoring] Kit See Rx Instructions .ROUTE .MEDSUPPLY Qty: 1 0RF Rx Instructions: As directed (DME) blood sugar diagnostic Strip See Rx Instructions .Route Qty: 50 2RF Rx Instructions: As directed potassium chloride 10 mEq tablet,ER particles/crystals 10 meq PO DAILY Qty: 30 0RF sucralfate 1 gram tablet 1 g PO BID Qty: 180 1RF hydrochlorothiazide 25 mg tablet See Rx Instructions .ROUTE .COMPLEX Qty: 90 0RF Dose Instruction: TAKE 1 TABLET BY MOUTH DAILY Rx Instructions: TAKE 1 TABLET BY MOUTH DAILY metformin 500 mg tablet See Rx Instructions .ROUTE .COMPLEX Qty: 90 0RF Dose Instruction: TAKE 1 TABLET BY MOUTH DAILY Rx Instructions: TAKE 1 TABLET BY MOUTH DAILY gabapentin 300 mg capsule 300 mg PO TID Qty: 270 0RF topiramate 50 mg tablet See Rx Instructions .ROUTE .COMPLEX Qty: 90 0RF Dose Instruction: TAKE 1 TABLET DAILY Rx Instructions: TAKE 1 TABLET DAILY tamsulosin 0.4 mg capsule See Rx Instructions .ROUTE .COMPLEX Qty: 90 0RF Dose Instruction: TAKE 1 CAPSULE DAILY Rx Instructions: TAKE 1 CAPSULE DAILY pantoprazole [Protonix] 40 mg tablet,delayed release (DR/EC) 40 mg PO DAILY Qty: 90 0RF lovastatin 40 mg tablet See Rx Instructions .ROUTE .COMPLEX Qty: 90 0RF Dose Instruction: TAKE 1 TABLET DAILY Rx Instructions: TAKE 1 TABLET DAILY metoprolol tartrate 25 mg tablet See Rx Instructions .ROUTE .COMPLEX Qty: 180 0RF Dose Instruction: TAKE 1 TABLET BY MOUTH TWICE DAILY Rx Instructions: TAKE 1 TABLET BY MOUTH TWICE DAILY glipizide 10 mg tablet extended release 24hr See Rx Instructions .ROUTE .COMPLEX Qty: 90 0RF Dose Instruction: TAKE 1 TABLET DAILY Rx Instructions: TAKE 1 TABLET DAILY Held metformin 1,000 mg tablet See Rx Instructions .ROUTE .COMPLEX Qty: 180 0RF Hold Instructions: Resume on 03/31/23. Dose Instruction: TAKE 1 TABLET BY MOUTH TWICE DAILY Rx Instructions: TAKE 1 TABLET BY MOUTH TWICE DAILY Discharge Orders: Discharge Order (Routine); Ordered 03/30/23 Ordered By: Jesus Oro Referrals: Jesus Oro M.D [Physician] - (Your Dr. Oro follow up appointment will be scheduled during your Alisa Goetz appointment. Thank you.) Alisa Goetz FNP [Nurse Practitioner] - 04/11/23 9:45 am Diet: Cardiac and Diabetic Activity: Increase activity as tolerated Patient Instructions: Clopidogrel (By mouth) (Plavix), Coronary Angioplasty (DC), Post Angiogram Home Care Instructions Discharge Date/Time: 03/30/23 10:40 Discharge Attestations Time Spent in Discharge Care*: less than 30 min Quality Metrics Clinical Quality Measures [ No reported AMI, CVA or VTE this stay] Coding Level of Care Code Acute Code for Chg Fwd Diagnoses
[2023-03-30] MEDS: clopidogrel 75 mg Tablet PO (09:05)
[2023-03-30] MEDS: tamsulosin 0.4 mg Capsule PO (09:05)
[2023-03-30] MEDS: aspirin 81 mg EC Tablet PO (09:05)
[2023-03-30] MEDS: gabapentin 300 mg Capsule PO (09:05)
[2023-03-30] MEDS: pantoprazole DR 40 mg Tablet PO (09:05)
[2023-03-30] MEDS: metoprolol tartrate 25 mg Tablet PO (09:05)
[2023-03-30 09:52] VITALS: BP 109/77; PULSE 58; RESP 7
--- NOTE | 2023-03-30 10:36 | PC.NURSE ---
Discharge Note Patient discharged to [home] via [w/c to POV] accompanied by []. Discharge instructions reviewed with patient and/or food products sales representative. Mobile pharmacy medications and/or prescriptions provided. Belongings/home medications returned.
== END 2023-03-30 10:40 | disposition home or self-care (01) ==
LOC: CCL 05:36 → CSU 10:27
PROVIDERS: PCP Nurse Practitioner Family; Visit Provider Internal Medicine
DX: I25.10 Atherosclerotic heart disease of native coronary artery without angina pectoris (principal); I25.82 Chronic total occlusion of coronary artery; Z95.1 Presence of aortocoronary bypass graft; I10 Essential (primary) hypertension; N40.0 Benign prostatic hyperplasia without lower urinary tract symptoms; K21.9 Gastro-esophageal reflux disease without esophagitis
CPT/HCPCS: 36415; 36416; 80048; 82962; 85025; 85347; 85730; 93459; 96361; 96365; 96367; 99152; 99153; C1725; C1769; C1874; C1887; C1894; C9600; J1644; J2250; J3010; J7030; Q0163; Q9967

== ENCOUNTER → 2023-04-19 09:44 | Outpatient (BNVA) | payer MEDICARE, MEDICAID, SELFPAY | PROVIDERS: PCP Nurse Practitioner Family; Visit Provider Nurse Practitioner Family | DX: I25.10 Atherosclerotic heart disease of native coronary artery without angina pectoris (principal); I10 Essential (primary) hypertension | CPT/HCPCS: 80048; 85025; 85610; 99214 ==

== ENCOUNTER → 2023-05-04 10:22 | Outpatient (BNVA) | payer MEDICARE, MEDICAID, SELFPAY | PROVIDERS: PCP Nurse Practitioner Family; Visit Provider Nurse Practitioner Family | DX: E11.9 Type 2 diabetes mellitus without complications (principal); R06.00 Dyspnea, unspecified; D64.9 Anemia, unspecified; I10 Essential (primary) hypertension | CPT/HCPCS: 80061; 83036; 83880; 85025 ==

== ENCOUNTER → 2023-06-19 12:43 | Outpatient (BNVA) | payer MEDICARE, MEDICAID, SELFPAY | PROVIDERS: PCP Nurse Practitioner Family; Visit Provider Internal Medicine | DX: I25.10 Atherosclerotic heart disease of native coronary artery without angina pectoris (principal); I10 Essential (primary) hypertension; E78.1 Pure hyperglyceridemia; R07.9 Chest pain, unspecified | CPT/HCPCS: 99214 ==

== ENCOUNTER → 2023-08-24 11:16 | Outpatient (BNVA) | payer MEDICARE, MEDICAID, SELFPAY | PROVIDERS: PCP Nurse Practitioner Family; Visit Provider Nurse Practitioner Family | DX: R10.9 Unspecified abdominal pain (principal); I10 Essential (primary) hypertension; E11.9 Type 2 diabetes mellitus without complications | CPT/HCPCS: 80053; 80061; 83036 ==

== ENCOUNTER 2023-09-13 06:32 | Outpatient (CLI) | payer MEDICARE, SELFPAY ==
[2023-09-13] MEDS: iohexol 350 mg/mL 500 mL Btl (per mL) PO (06:49)
--- NOTE | 2023-09-13 08:00 | CT_ITS ---
WS: [id number] CT ABDOMEN AND PELVIS WITH CONTRAST HISTORY: R10.9 - Unspecified abdominal pain TECHNIQUE: Imaging performed of the abdomen and pelvis with IV contrast. Single phase imaging of the abdomen. Coronal and sagittal reformats are submitted. All CT scans at [facility] use at [address] one of these dose optimization techniques: automated exposure control; mA and/or kV adjustment per patient size (includes targeted exams where dose is matched to clinical indication); or iterative re construction. IV CONTRAST: Omnipaque 350; 100 mL IV. Oral contrast: Yes. DLP: 591.57 mGy.cm COMPARISON: 12/14/2020 Lower thorax: Linear scar or atelectasis at the LEFT lung base. Heart is normal size. Moderate sized hiatal hernia. Liver/biliary system: Normal size with no intrahepatic dilatation. Gallbladder: Prior cholecystectomy. Pancreas: Normal size pancreas and pancreatic duct. No adjacent inflammation. Spleen: Normal size spleen. No mass or infarct. Adrenal glands: Stable RIGHT adrenal 7 mm normal LEFT adrenal gland. Right kidney: Horseshoe kidney. Nonobstructing renal calcification. No hydronephrosis. Left kidney: Congenital horseshoe. LEFT renal cyst 2.8 x 2.7 cm. No obstruction of the kidney. Aorta: Moderate atherosclerosis with no aneurysm. Heavy calcification in the proximal SMA and celiac axis. Component of SMA stenosis is present. No ischemic changes in the GI tract. Lymphadenopathy: None. Free fluid: None. GI tract: Nondistended stomach. No small bowel obstruction. The appendix is not definitely identified . No history of appendectomy. Very slight hyperemia near the cecum but there is no wall thickening or adjacent inflammation. No colon obstruction. No wall thickening. Abdominal wall: LEFT periumbilical hernia. The orifice measures 1.8 cm. Hernia contains fat only. Pelvis: No free fluid or adenopathy within the pelvis. Negative urinary bladder. Bones: Unremarkable. IMPRESSION: 1. No acute abdominal or pelvic abnormalities. 2. Congenital horseshoe kidneys. 3. Nonobstructing RIGHT renal calcification and benign LEFT renal cyst. 4. No GI tract obstruction or ischemia. 5. Advanced atherosclerosis in the aorta and the mesenteric arteries. Patient is at risk for bowel i schemia. 6. Moderate hiatal hernia. 7. LEFT periumbilical hernia containing fat only. 8. Prior cholecystectomy.
[2023-09-13] MEDS: iohexol 350 mg/mL 500 mL Btl (per mL) IV (08:19)
== END 2023-09-13 06:33 | disposition home or self-care (01) ==
LOC: RAD 06:33
PROVIDERS: PCP Nurse Practitioner Family; Visit Provider Nurse Practitioner Family
DX: N28.1 Cyst of kidney, acquired (principal); N28.89 Other specified disorders of kidney and ureter; Q63.1 Lobulated, fused and horseshoe kidney
CPT/HCPCS: 74177; Q9967

== ENCOUNTER → 2023-10-23 10:59 | Outpatient (BNVA) | payer MEDICARE, MEDICAID, SELFPAY | PROVIDERS: PCP Nurse Practitioner Family; Visit Provider Thoracic Surgery (Cardiothoracic Vascular Surgery) | DX: K55.1 Chronic vascular disorders of intestine (principal) | CPT/HCPCS: 99203 ==

== ENCOUNTER → 2023-12-12 10:07 | Outpatient (BNVA) | payer MEDICARE, MEDICAID, SELFPAY | PROVIDERS: PCP Nurse Practitioner Family; Visit Provider Nurse Practitioner Family | DX: I10 Essential (primary) hypertension (principal); E11.9 Type 2 diabetes mellitus without complications; Z79.899 Other long term (current) drug therapy | CPT/HCPCS: 80053; 83036 ==

== ENCOUNTER → 2023-12-26 14:36 | Outpatient (BNVA) | payer MEDICARE, MEDICAID, SELFPAY | PROVIDERS: PCP Nurse Practitioner Family; Visit Provider Internal Medicine Cardiovascular Disease | DX: I25.10 Atherosclerotic heart disease of native coronary artery without angina pectoris (principal); Z95.2 Presence of prosthetic heart valve; I10 Essential (primary) hypertension | CPT/HCPCS: 99214 ==

== ENCOUNTER → 2024-03-21 11:54 | Outpatient (BNVA) | payer MEDICARE, MEDICAID, SELFPAY | PROVIDERS: PCP Nurse Practitioner Family; Visit Provider Nurse Practitioner Family | DX: I10 Essential (primary) hypertension (principal); E11.69 Type 2 diabetes mellitus with other specified complication | CPT/HCPCS: 80053; 80061; 83036; 84443 ==

== ENCOUNTER → 2024-06-19 11:14 | Outpatient (BNVA) | payer MEDICARE, MEDICAID, SELFPAY | PROVIDERS: PCP Nurse Practitioner Family; Visit Provider Nurse Practitioner Family | DX: I10 Essential (primary) hypertension (principal); E11.69 Type 2 diabetes mellitus with other specified complication; R53.83 Other fatigue; N40.0 Benign prostatic hyperplasia without lower urinary tract symptoms; Z79.899 Other long term (current) drug therapy | CPT/HCPCS: 80053; 80061; 83036; 85025 ==

== ENCOUNTER → 2024-09-05 09:29 | Outpatient (BNVA) | payer MEDICARE, MEDICAID, SELFPAY | PROVIDERS: PCP Nurse Practitioner Family; Visit Provider Nurse Practitioner Family | DX: I10 Essential (primary) hypertension (principal); E11.69 Type 2 diabetes mellitus with other specified complication; R53.83 Other fatigue | CPT/HCPCS: 80053; 80061; 83036; 85025 ==

== ENCOUNTER → 2024-12-24 10:46 | Outpatient (BNVA) | payer MEDICARE, MEDICAID, SELFPAY | PROVIDERS: PCP Nurse Practitioner Family; Visit Provider Nurse Practitioner Family | DX: I10 Essential (primary) hypertension (principal); E11.69 Type 2 diabetes mellitus with other specified complication; E11.9 Type 2 diabetes mellitus without complications; R35.0 Frequency of micturition | CPT/HCPCS: 80053; 80061; 81000; 82043; 83036; 84443 ==

== ENCOUNTER → 2025-03-25 12:35 | Outpatient (BNVA) | payer MEDICARE, SELFPAY | PROVIDERS: PCP Nurse Practitioner Family; Visit Provider Internal Medicine Cardiovascular Disease | DX: I25.10 Atherosclerotic heart disease of native coronary artery without angina pectoris (principal); K44.9 Diaphragmatic hernia without obstruction or gangrene; I10 Essential (primary) hypertension; Z95.1 Presence of aortocoronary bypass graft; Z95.2 Presence of prosthetic heart valve; Z87.891 Personal history of nicotine dependence | CPT/HCPCS: 99214 ==

== ENCOUNTER → 2025-03-26 09:42 | Outpatient (BNVA) | payer MEDICARE, SELFPAY | PROVIDERS: PCP Nurse Practitioner Family; Visit Provider Nurse Practitioner Family | DX: I10 Essential (primary) hypertension (principal); E11.69 Type 2 diabetes mellitus with other specified complication; R53.83 Other fatigue | CPT/HCPCS: 80053; 80061; 83036; 85025 ==